=== PATIENT | male | born 1980 | race African-American/Black ===

== ENCOUNTER 2024-01-04 09:35 | Emergency (ER) | payer BC, SELFPAY ==
[2024-01-04 09:50] VITALS: BP 137/72
[2024-01-04 10:02] VITALS: BMI 25.9
--- NOTE | 2024-01-04 10:43 | ED.GENMED ---
History of Present Illness
General
Chief Complaint: Breathing Problem
Source: patient
Exam Limitations: none
Time Seen by Provider: 01/04/24 10:12
Nursing documentation reviewed up to this point in time: agreed with
History of Present Illness
History of Present Illness:
43-year-old male with no significant past medical history states for the past week he has been increasingly short of breath with exertion. He did have a mild upper respiratory infection with cough and sneezing the week prior to this happening. He
states the shortness of breath is worse with activity such as walking, raking leaves, he cannot run as usual without getting short of breath and fatigue. He denies fever or chills. He denies chest pain or lightheadedness. He denies any recent
travel. His [id number]-[id number]-muh son has a runny nose but otherwise no sick contacts
Past History
Past History
ED Past Medical History: None
ED Past Surgical History: None
Social History
Tobacco: Non-smoker
Alcohol: Occasional
Personal:
Living: with family
Employment: Employed
Review of Systems
Review of Systems
Allergies reviewed?: Yes
All Other Systems: ROS reviewed and negative except as documented in HPI and ROS
Constitutional: Reports fatigue; Denies fever or chills
EENT: Reports sore throat (mild scratchy throat)
Respiratory: Reports cough (2 weeks ago, none now) and trouble breathing (SOB with exertion)
Cardiac: Denies chest pain, diaphoresis, palpitations or syncope
ABD/GI: Denies abdominal pain, nausea, vomiting, diarrhea, constipated or anorexia
: Denies dysuria or difficulty voiding
Musculoskeletal: Reports no symptoms
Skin: Reports no symptoms
Neurological: Reports no symptoms
Phy Exam
Physical Exam
Physical Exam:
GENERAL: No acute distress. A&Ox3.
CONSTITUTIONAL: Afebrile.
EYES: clear, conjunctivae normal
ENMT: moist mucus membranes, Pharynx nl
RESPIRATORY: Regular respirations, nonlabored, lungs clear.
CARDIOVASCULAR: Regular rate and rhythm, no murmurs, no rubs. Pulse ox 99% RA, Ambulated around room with no change in pulse ox
GI: Soft, nontender, normal BS
MUSCULOSKELETAL: Moves with ease. Well perfused.
SKIN: Warm, dry, normal
PSYCH: Normal mood and affect. Well kept, interactive and appropriate
NEUROLOGIC: Awake, alert and oriented. No focal neurological deficits
Course
Orders/Labs/Results
Orders:
Orders
01/04/24 11:02
COVID-19 Antigen Urgent
Source: Nasal Swab
Complete Blood Count/With Diff Urgent
Comprehensive Metabolic Panel Urgent
D-Dimer Urgent
Troponin I Urgent
01/04/24 11:47
CR Chest - 2 Views Urgent
Comment:
Reason For Exam: SOB
01/04/24 12:33
Electrocardiogram (*1) Urgent
Reason for Study: Bradycardia / Tachycardia
EKG- Treatment ONCE
Abnormal Lab Results
01/04/24
11:02
RBC 4.69 L 10^6/uL
(4.70-6.10)
MPV 10.9 H fL
(7.4-10.4)
ALT 58 H U/L
(0-50)
01/04/24 11:02
01/04/24 11:02
Vital Signs
Initial and Last Documented VS:
Initial Vital Signs
Temp Pulse Resp BP Pulse Ox
98.1 F 48 18 137/72 99
01/04/24 09:50 01/04/24 09:50 01/04/24 09:50 01/04/24 09:50 01/04/24 09:50
Last Documented Vital Signs
Temp Pulse Resp BP Pulse Ox
98.1 F 50 17 126/72 99
01/04/24 09:50 01/04/24 12:45 01/04/24 12:45 01/04/24 12:19 01/04/24 12:45
MDM/Problems Addressed
Differential Diagnosis Includes:
Viral URI, pneumonia, PE, COVID, HI
MDM/Problems Addressed:
43-year-old male with no significant past medical history states for the past week he has been increasingly short of breath with exertion. He did have a mild upper respiratory infection with cough and sneezing the week prior to this happening. He
states the shortness of breath is worse with activity such as walking, raking leaves, he cannot run as usual without getting short of breath and fatigue. He denies fever or chills. He denies chest pain or lightheadedness. He denies any recent
travel. His 93-yovxo-lby son has a runny nose but otherwise no sick contacts
Afebrile, NAD
11:45 a.m.
CBC unremarkable
CMP normal
D dimer normal
Troponin normal
Covid neg
12:45 PM:
Chest x-ray: Radiology report read: IMPRESSION:
Questionable/subtle opacity within the RIGHT upper lobe which may represent a small pneumonia in the appropriate clinical setting.
EKG: Sinus bradycardia with a heart rate of 47
Final diagnosis: Probable right upper lobe pneumonia
Will treat with doxycycline and PCP f/u
*Critical Care Note
Total Time (30-74mins, 75-104mins- exclusive of procedures): Not Applicable
ED Attending Note
-
Portions of this chart may have been created with voice recognition software.� Occasional wrong word or��sound alike� substitutions may have occurred due to the inherent limitations of voice recognition software.
Discharge Plan
Departure
Patient Disposition: Home (Routine Discharge)
Date of Disposition: 01/04/24
Time of Disposition: 12:55
Patient with high blood pressure during this ER visit?: No
Condition: Good
Discharge Problem:
Pneumonia
Instructions: Pneumonia in adults
Prescriptions:
New
doxycycline hyclate 100 mg tablet
100 mg PO BID Qty: 20 0RF
Referrals:
Marlys Becerril CRNP [Family Provider] - As needed
Activity Restrictions/Additional Instructions:
As we discussed, your chest x-ray shows a possible mild right upper lung pneumonia
I sent a prescription to your pharmacy for the antibiotic doxycycline to take twice a day for 10 days.
See your doctor if you are not 100% improved in 10 days
Return here immediately for worsening shortness of breath, fever not relieved with Tylenol or ibuprofen or feeling sicker in any way.
Interventions
Interventions:
*Risk Screen - Suicide Last Done: 01/04/24 09:50
*General Assessment Last Done: 01/04/24 09:50
*Neglect/Abuse Screening Last Done: 01/04/24 09:50
ED- Fall Risk Assessment Last Done: 01/04/24 10:04
*ED COVID-19 Vaccine History Last Done: 01/04/24 13:04
*Nursing Disposition Last Done: 01/04/24 13:04
ED- Cardiac Assessment Last Done: 01/04/24 10:04
ED- Pulmonary Assessment Last Done: 01/04/24 10:04
Discharge Date and Time
Discharge Date/Time: 01/04/24 13:05
Print Language: NEPALI
[2024-01-04 11:15] LABS: % Eosinophils 0.3 % (0-6); % Immature Granulocytes 0.3 % (0-0.5); % Lymphocytes 24.6 % (20.5-51.1); % Neutrophils 66.8 % (42.2-75.2); Absolute Lymphocytes 1.7 10^3/uL (1.2-3.4); Absolute Monocytes 0.5 10^3/uL (0.1-0.6); Absolute Neutrophils 4.5 10^3/uL (1.4-6.5); Hematocrit 39.7 % (39.0-52.0); Hemoglobin 13.1 g/dL (13.0-18.0); Mean Corpuscular Hgb 27.9 pg (27.0-31.0); Mean Corpuscular Volume 84.6 fL (80.0-94.0); Mean Platelet Volume 10.9 fL (7.4-10.4); Nucleated Red Blood Cells % 0 % (-); Platelet Count 224 10^3/uL (130-400); Red Blood Cell Count 4.69 10^6/uL (4.70-6.10); Red Cell Dist. Width 13.2 % (11.5-14.5); White Blood Cell Count 6.7 10^3/uL (4.8-10.8)
[2024-01-04 11:27] LABS: ALT (SGPT) 58 U/L (0-50); AST (SGOT) 55 U/L (17-59); Albumin 4.5 g/dl (3.5-5.0); Alkaline Phosphatase 67 U/L (38-126); Blood Urea Nitrogen 13 mg/dl (9-20); Calcium 9.5 mg/dl (8.4-10.2); Carbon Dioxide 27 mmol/L (22-30); Chloride 102 mmol/L (98-107); Estimated Creatinine Clearance 101 ml/min; Glucose 91 mg/dl (70-99); Potassium 4.5 mmol/L (3.5-5.1); Sodium 140 mmol/L (135-145); Total Bilirubin 0.3 mg/dl (0.2-1.3); Total Protein 7.4 g/dl (6.3-8.2); eGFR > 60.00
[2024-01-04 11:28] LABS: COVID-19 Antigen Negative (Negative)
[2024-01-04 11:29] LABS: D-Dimer 0.38 ug/mlFEU (0.00-0.50)
[2024-01-04 11:39] LABS: Troponin I < 0.012 ng/ml
[2024-01-04 12:19] VITALS: BP 126/72
== END 2024-01-04 13:05 | disposition home or self-care (01) ==
LOC: EMR 09:35
PROVIDERS: Registered Nurse; EMERGENCY PHYSICIAN Emergency Medicine; FAMILY PHYSICIAN Nurse Practitioner Family
DX: J18.9 Pneumonia, unspecified organism (principal)
CPT/HCPCS: 99283; 71046; 80053; 84484; 85025; 85379; 87811; 93005

== ENCOUNTER 2024-02-27 04:38 | Emergency (ER) | payer BC, SELFPAY ==
[2024-02-27 04:44] VITALS: BP 122/72
[2024-02-27 06:16] VITALS: BP 118/75
[2024-02-27 06:18] VITALS: BMI 26.1
[2024-02-27 07:00] VITALS: BP 121/75
--- NOTE | 2024-02-27 07:19 | ED.GENMED ---
History of Present Illness
General
Chief Complaint: Headache
Source: patient
Exam Limitations: none
Time Seen by Provider: 02/27/24 07:10
Nursing documentation reviewed up to this point in time: agreed with
History of Present Illness
History of Present Illness:
43 yo male presents for red ring of rash around his navel. It is itchy. Started about 2 weeks ago. Denies n/v/d/c. Has had mild headaches, felt feverish past few days but did not take temp.
Past History
Past History
ED Past Medical History: None
ED Past Surgical History: None
Social History
Tobacco: Non-smoker
Alcohol: Occasional
Personal:
Living: with family
Employment: Employed
Review of Systems
Review of Systems
Allergies reviewed?: Yes
All Other Systems: ROS reviewed and negative except as documented in HPI and ROS
Constitutional: Reports fever (felt feverish); Denies fatigue or chills
EENT: Denies sore throat
Respiratory: Denies trouble breathing
Cardiac: Denies chest pain
ABD/GI: Denies abdominal pain, nausea or diarrhea
: Reports no symptoms
Musculoskeletal: Reports no symptoms
Skin: Reports other (red ring rash around belly button, itchy)
Neurological: Reports no symptoms
Phy Exam
Physical Exam
Physical Exam:
GENERAL: No acute distress. A&Ox3.
CONSTITUTIONAL: Afebrile.
RESPIRATORY: Regular respirations, nonlabored, lungs clear.
CARDIOVASCULAR: Regular rate and rhythm, no murmurs, no rubs.
GI: Soft, nontender, normal BS
MUSCULOSKELETAL: Moves with ease. Well perfused.
SKIN: Warm, dry, normal. [place] ring around navel to about 2 cm out from center. Skin intact. No palpable mass/abscess, non tender
PSYCH: Normal mood and affect. Well kept, interactive and appropriate
NEUROLOGIC: Awake, alert and oriented. No focal neurological deficits
Course
Orders/Labs/Results
Orders:
Orders
02/27/24 07:08
COVID-19 Antigen Urgent
Source: Nasal Swab
Influenza A+B Rapid Molecular Urgent
REN Source: Nasal Swab
Specimen Description:
02/27/24 07:44
Lyme Progressive Urgent
02/27/24 07:48
Acetaminophen [Tylenol] 975 mg .ROUTE .STK-MED ONE
02/27/24 07:49
Acetaminophen [Tylenol] 975 mg PO NOW STA
Abnormal Lab Results
02/27/24
07:08
SARS-CoV-2 Antigen Positive A
(Negative)
Vital Signs
Initial and Last Documented VS:
Initial Vital Signs
Temp Pulse Resp BP Pulse Ox
98.8 F 66 18 122/72 100
02/27/24 04:44 02/27/24 04:44 02/27/24 04:44 02/27/24 04:44 02/27/24 04:44
Last Documented Vital Signs
Temp Pulse Resp BP Pulse Ox
99.9 F 78 18 121/75 100
02/27/24 07:00 02/27/24 07:00 02/27/24 07:00 02/27/24 07:00 02/27/24 07:00
MDM/Problems Addressed
Differential Diagnosis Includes:
Lyme's, early Cellulitis/abscess, insect bite
MDM/Problems Addressed:
43 yo male presents for red ring of rash around his navel. It is itchy. Started about 2 weeks ago. Denies n/v/d/c. Has had mild headaches, felt feverish past few days but did not take temp.
Afebrile
NAD
Plan: Cover for cellulitis/Lyme's with Doxycycline.
Lyme result pending
Flu neg
Covid positive
*Critical Care Note
Total Time (30-74mins, 75-104mins- exclusive of procedures): Not Applicable
ED Attending Note
-
Portions of this chart may have been created with voice recognition software.� Occasional wrong word or��sound alike� substitutions may have occurred due to the inherent limitations of voice recognition software.
Discharge Plan
Departure
Patient Disposition: Home (Routine Discharge)
Date of Disposition: 02/27/24
Time of Disposition: 07:25
Patient with high blood pressure during this ER visit?: No
Condition: Good
Discharge Problem:
Cellulitis of abdominal wall, COVID-19
Instructions: Lyme disease, Cellulitis (skin infection) in adults - ED discharge instructions, COVID-19 - ED discharge instructions
Prescriptions:
New
doxycycline hyclate 100 mg tablet
100 mg PO BID Qty: 20 0RF
Referrals:
Marlys Becerril CRNP [Family Provider] - As needed
Activity Restrictions/Additional Instructions:
As we discussed, although I can't make the diagnosis at this time, I have provided you with information on Lyme's disease
If the test comes back positive, we will contact you.
I sent a prescription to your pharmacy for Doxycycline antibiotic.
This will cover both cellulitis and Lymes. If Lyme's comes back positive you will need another 10 days of antibiotic. You may call your PCP or here for the prescription.
You can look in the portal for the result
Interventions
Interventions:
*Risk Screen - Suicide Last Done: 02/27/24 04:39
*General Assessment Last Done: 02/27/24 05:59
*Neglect/Abuse Screening Last Done: 02/27/24 04:39
ED- Fall Risk Assessment Last Done: 02/27/24 05:59
*ED COVID-19 Vaccine History Last Done: 02/27/24 05:59
*Nursing Disposition Last Done: 02/27/24 08:32
ED- Neurological Assessment Last Done: 02/27/24 05:59
ED-Skin Assessment Last Done: 02/27/24 07:01
Discharge Date and Time
Discharge Date/Time: 02/27/24 08:00
Print Language: IVORIAN
[2024-02-27 07:47] LABS: COVID-19 Antigen Positive (Negative)
[2024-02-27] MEDS: TYLENOL 975 MG PO (07:49)
[2024-02-28 11:49] LABS: Lyme Antibody Screen, EIA Negative (Negative)
== END 2024-02-27 08:00 | disposition home or self-care (01) ==
LOC: EMR 04:38
PROVIDERS: Registered Nurse; EMERGENCY PHYSICIAN Emergency Medicine; FAMILY PHYSICIAN Nurse Practitioner Family
DX: U07.1 COVID-19 (principal); L03.311 Cellulitis of abdominal wall
CPT/HCPCS: 99283; 86618; 87502; 87811